=== PATIENT | male | born 1950 | race Hispanic/Latino ===

== ENCOUNTER 2017-03-24 17:59 | Emergency (ER) | payer BC, MEDICARE ==
[2017-03-24 18:00] VITALS: PULSE 88; BMI 37.2
[2017-03-24 18:36] VITALS: TEMP 98.2
--- NOTE | 2017-03-24 19:11 | ED PDOC ---
Arrival/HPI - General Historian: Patient, Spouse - History of Present Illness Time/Duration: 24 hours Symptom Onset: Gradual Symptom Course: Worsening - General Chief Complaint: Shortness Of Breath Time Seen by Provider: 03/24/17 18:33 - History of Present Illness Narrative History of Present Illness (Text): 66 M with a PMHx of atrial fibrillation (on coumadin) , COPD, abdominal abscess , HTN, blood clots, severe tracheobronchiomalacia, tinnitus, rheumatoid arthritis, peripheral neuropathy, osteoarthritis presents with shortness of breath. Pt states that his shortness of breath first started yesterday morning and it has since got progressively worse. He states that he tried taking his inhalers but it did not help, so due to his extensive medical history he decided to come to the emergency depart. Pt denies any headache, fevers, chills , coughing or chest pain, abd pain, n/v/d. PMD: Dr Deutsch ([facility]) Past Medical History - Provider Review Nursing Documentation Reviewed: Yes - Infectious Disease Hx of Infectious Diseases: None - Tetanus Immunization Tetanus Immunization: Unknown - Cardiac Hx Cardiac Disorders: Yes Hx Atrial Fibrillation: Yes Hx Hypotension: Yes - Pulmonary Hx Asthma: Yes Hx Chronic Obstructive Pulmonary Disease (COPD): Yes Hx Emphysema: Yes - Neurological Hx Neurological Disorder: Yes (neuropathy feet and hands) Hx Dizziness: Yes - HEENT Hx HEENT Disorder: No - Renal Hx Renal Failure: Yes (in past) - Hematological/Oncological Hx Anemia: Yes (blood transfusions) - Integumentary Hx Dermatological Disorder: Yes (skin CA top of head) - Musculoskeletal/Rheumatological Hx Arthritis: Yes - Gastrointestinal Hx Ileostomy: Yes (ileostomy reversal) Other/Comment: polyps, colon resection - Genitourinary/Gynecological Hx Genitourinary Disorders: No - Psychiatric Hx Psychophysiologic Disorder: No Hx Anxiety: Yes Hx Substance Use: No - Surgical History Other/Comment: colon resection 11/21 and 11/29 1999, colon resection june 02 2010, abcess in colon 09/10/2010 was emergency sx resulting in ileostomy, 3 bacterian infections and 104 fever, ileostomy reversal 04/05/2011 with complications of pneumonia, resp and kidney failure in icu, blas with cardioversion 06/04/14, marsha filter 05/2011,left hip replacement 06/04/2006 and 10/11/2006, hernia over ileostomy removed 01/31/2012, patient has IVC filter - Anesthesia Hx Anesthesia Reactions: No Hx Malignant Hyperthermia: No - Suicidal Assessment Feels Threatened In Home Enviroment: No Family/Social History - Physician Review Nursing Documentation Reviewed: Yes Family/Social History: No Known Family HX Smoking Status: Never Smoked Hx Alcohol Use: Yes (social) Hx Substance Use: No Hx Substance Use Treatment: No Allergies/Home Meds Allergies/Adverse Reactions: Allergies morphine Allergy (Verified 03/24/17 18:09) SHORTNESS OF BREATH HALLUCINATION CONTRAST Allergy (Uncoded 08/06/16 10:51) SHORTNESS OF BREATH Home Medications: Home Meds Medication Instructions Recorded Confirmed Cholestyramine [Cholestyramine 1 pkt PO DAILY 05/28/14 03/24/17 Resin] Esomeprazole Magnesium [Nexium] 40 mg PO DAILY 09/11/14 03/24/17 Cholecalciferol (Vitamin D3) 2,000 iu PO DAILY 11/06/14 03/24/17 [Vitamin D3] Albuterol Sulfate [Proair Hfa] 2 puff IH BID 12/27/14 03/24/17 Lamotrigine [Lamictal] 150 mg PO HS 12/27/14 03/24/17 Mecobal/Levomefolat Ca/B6 Phos 1 tab PO BID 12/27/14 03/24/17 [Foltanx Tablet] Acetaminophen/Oxycodone Hydr 1 tab PO TID 08/24/15 03/24/17 [Percocet 10/325 mg Tab] Zolpidem Tartrate [Ambien] 1 tab PO HS 08/06/16 03/24/17 Abatacept [Orencia] 125 mg INJ QWK 12/24/16 03/24/17 Allopurinol [Zyloprim] 1 tab PO BID 12/24/16 03/24/17 Arformoterol [Brovana] 1 vial IH BID 12/24/16 03/24/17 Budesonide [Pulmicort Respules] 1 vial IH BID 12/24/16 03/24/17 Cetirizine HCl [Zyrtec] 1 tab PO DAILY 12/24/16 03/24/17 Colchicine [Mitigare] 1 tab PO QOTHERDAY 12/24/16 03/24/17 Folic Acid 1 tab PO DAILY 12/24/16 03/24/17 Furosemide [Lasix] 1 tab PO BID 12/24/16 03/24/17 Magnesium Oxide [Mag-Ox] 2 tab PO BID 12/24/16 03/24/17 Meclizine [Meclizine*] 1 tab PO TID 12/24/16 03/24/17 Methotrexate 25 mg INJ QWK 12/24/16 03/24/17 Metoprolol Tartrate [Lopressor] 1 tab PO BID 12/24/16 03/24/17 Psyllium Husk/Calcium Carb 2 cap PO TID 12/24/16 03/24/17 [Metamucil Plus Calcium Capsule] Warfarin Sodium [Coumadin] 5 mg PO QD6 12/24/16 03/24/17 Warfarin [Coumadin] 1 tab PO SUN 12/24/16 03/24/17 Montelukast [Singulair] 10 mg PO HS 03/24/17 03/24/17 Review of Systems - Review of Systems Constitutional: absent: Weight Change, Fevers Eyes: absent: Vision Changes ENT: absent: Hearing Changes Respiratory: SOB. absent: Cough, Sputum, Wheezing Cardiovascular: absent: Chest Pain, Palpitations, Edema Gastrointestinal: absent: Abdominal Pain, Diarrhea, Nausea, Vomiting Genitourinary Male: absent: Dysuria, Frequency Musculoskeletal: Arthralgias (R shoulder ) Skin: absent: Rash Neurological: absent: Headache, Dizziness Endocrine: absent: Diaphoresis Psychiatric: absent: Anxiety, Depression Physical Exam Temperature: Afebrile Blood Pressure: Hypertensive Pulse: Regular Respiratory Rate: Normal Appearance: Positive for: Well-Appearing, Non-Toxic, Comfortable Pain Distress: None Mental Status: Positive for: Alert and Oriented X 3 - Systems Exam Head: Present: Atraumatic, Normocephalic Pupils: Present: PERRL Extroacular Muscles: Present: EOMI Conjunctiva: Present: Normal Mouth: Present: Moist Mucous Membranes Neck: Present: Normal Range of Motion Respiratory/Chest: Present: Clear to Auscultation, Good Air Exchange. No: Respiratory Distress, Accessory Muscle Use, Wheezes, Rales Cardiovascular: Present: Regular Rate and Rhythm, Normal S1, S2. No: Murmurs Abdomen: Present: Normal Bowel Sounds. No: Tenderness, Distention, Peritoneal Signs Upper Extremity: Present: Normal Inspection. No: Cyanosis, Edema Lower Extremity: Present: Normal Inspection. No: Edema, CALF TENDERNESS Neurological: Present: GCS=15, CN II-XII Intact, Speech Normal Skin: Present: Warm, Dry, Normal Color. No: Rashes Psychiatric: Present: Alert, Oriented x 3, Normal Insight, Normal Concentration Vital Signs Temp Pulse Resp BP Pulse Ox 03/24/17 19:05 16 97 03/24/17 18:28 98.2 F 70 12 145/94 H 97 03/24/17 18:04 98 F 72 18 141/93 H 95 Medical Decision Making ED Course and Treatment: Patient Seen With Resident: In agreement with resident note. Patient was seen and evaluated with resident, came up with plan and treatment together. (Omid Robledo DO) Impression: 66 M with a PMHx of atrial fibrillation (on coumadin) , COPD, abdominal abscess, HTN, blood clots, severe tracheobronchiomalacia, tinnitus, rheumatoid arthritis, peripheral neuropathy, osteoarthritis presents with shortness of breath. Differential Diagnosis included but are not limited to: COPD exac vs CHF Plan: - CBC, CMP, Cardiac Iso, BNP, INR PT/PTT - EKG - CXR - Duoneb stat - O2 NC as needed - Solumedrol 125mg stat - Reassess and disposition Prior Visits: Notes and results from previous visits were reviewed. On 12/24/16 patient came in complaining of abdominal pain and found to have SBO. EKG: Ordered, reviewed, and independently interpreted the EKG. Rate : 68 BPM Rhythm : afib Interpretation : No ST-segment elevations or depressions, no T-wave inversions, normal intervals. Comparison : 12/24/16 Progress Notes: 03/24/17 21:03 Pt hemodynamically stable. Saturating well. No complaints of shortness of breath or chest pain at this time. Pt instructed to follow up with his PMD and Quenching Machine Operator. (Nikita Mckoy) - Lab Interpretations Lab Results: 03/24/17 19:28 03/24/17 19:28 Lab Results 03/24/17 19:28: PT 15.0 H, INR 1.39 H, APTT 33.0 H 03/24/17 19:28: Sodium 136, Potassium 4.7, Chloride 98, Carbon Dioxide 32, Anion Gap 11, BUN 22 H, Creatinine 1.2, Est GFR ( Amer) > 60, Est GFR ( Non-Af Amer) > 60, Random Glucose 97, Calcium 9.2, Magnesium 2.1, Total Bilirubin 0.8, AST 42, ALT 25, Alkaline Phosphatase 102, Lactate Dehydrogenase 761 H, Total Creatine Kinase 125, Troponin I < 0.01, NT-Pro-B Natriuret Pep 2020 H, Total Protein 6.7, Albumin 3.9, Globulin 2.9, Albumin/Globulin Ratio 1.3 03/24/17 19:28: WBC 5.4 D, RBC 4.22, Hgb 12.7 L, Hct 38.1 L, MCV 90.3, MCH 30.1 , MCHC 33.3, RDW 16.5 H, Plt Count 174, MPV 11.2 H, Gran % 66.1, Lymph % (Auto) 22.7, [place] % (Auto) 8.1 H, Eos % (Auto) 2.2, Baso % (Auto) 0.9, Gran # 3.59, Lymph # 1.2, [place] # 0.4, Eos # 0.1, Baso # 0.05 - RAD Interpretation Radiology Orders: 03/24/17 18:34 CHEST PORTABLE [RAD] Stat - Medication Orders Current Medication Orders: Discontinued Medications Albuterol/Ipratropium (Duoneb 3 Mg/0.5 Mg (3 Ml) Ud) 3 ml IH Q15M ISAIAH Stop: 03/24/17 19:46 Last Admin: 03/24/17 19:42 Dose: 3 ml Methylprednisolone (Solu-Medrol) 125 mg IVP STAT STA Stop: 03/24/17 19:06 Last Admin: 03/24/17 19:29 Dose: 125 mg - PA / EMISSIONS TESTING AND REPAIR TECHNICIAN / Resident Statement / has reviewed & agrees with the documentation as recorded. / has examined the patient and agrees with the treatment plan. Disposition/Present on Arrival - Present on Arrival Any Indicators Present on Arrival: No History of DVT/PE: No History of Uncontrolled Diabetes: No Urinary Catheter: No History of Decub. Ulcer: No History Surgical Site Infection Following: Orthopedic Procedures - Disposition Have Diagnosis and Disposition been Completed?: Yes Disposition Time: 21:00 Patient Plan: Discharge - Disposition Diagnosis: COPD exacerbation Disposition: HOME/ ROUTINE Patient Problems: Current Active Problems Problem Status Onset COPD exacerbation Acute Condition: IMPROVED Additional Instructions: Al Interiano , thank you for letting us take care of you today. Your provider was Dr Robledo . You were treated for COPD exacerbation. The emergency medical care you received today was directed at your acute symptoms. If you were prescribed any medication, please fill it and take as directed. It may take several days for your symptoms to resolve. Return to the Emergency Department if your symptoms worsen, do not improve, or if you have any other problems. Please contact your doctor or call one of the physicians/clinics you have been referred to that are listed on the Patient Visit Information form that is included in your discharge packet. Bring any paperwork you were given at discharge with you along with any medications you are taking to your follow up visit. Our treatment cannot replace ongoing medical care by a primary care provider (PCP) outside of the emergency department. Thank you for allowing the [facility] team to be part of your care today. Follow up with your PMD with in 3 days. If your symptoms recur come back to the emergency department. Referrals: Livan Deutsch MD [Primary Care Provider] - Follow up with primary
[2017-03-24] MEDS: Albuterol-Ipratrop 3 mg / 0.5 (3 ml) UD IH SCH ×3 (19:30→21:02)
[2017-03-24 19:35] LABS: ADD MANUAL DIFF? NO
[2017-03-24 19:56] LABS: BASO # 0.05 K/mm3 (0.0-2.0); BASO % 0.9 % (0.0-3.0); EOS # 0.1 (0.0-0.7); EOS % 2.2 % (1.5-5.0); GRAN # 3.59 (1.4-6.5); GRAN % 66.1 % (50.0-68.0); HEMATOCRIT 38.1 % (42.0-52.0); LYMPH # 1.2 (1.2-3.4); LYMPH % 22.7 % (22.0-35.0); MEAN CELL VOLUME 90.3 fL (80.0-105.0); MEAN CORPUSCULAR HEMOGLOBIN 30.1 pg (25.0-35.0); MEAN CORPUSCULAR HGB CONC 33.3 g/dl (31.0-37.0); MEAN PLATELET VOLUME 11.2 fl (7.0-11.0); MONO # 0.4 (0.1-0.6); MONO % 8.1 % (1.0-6.0); PLATELET COUNT 174 10^3/uL (120.0-450.0); RED CELL DISTRIBUTION WIDTH 16.5 % (11.5-14.5); WHITE BLOOD COUNT 5.4 10^3/ul (4.5-11.0)
[2017-03-24 20:00] LABS: INR 1.39 (0.93-1.08)
[2017-03-24 20:08] LABS: ALB/GLOB RATIO 1.3 (1.1-1.8); ALKALINE PHOSPHATASE 102 U/L (38-133); ALT/SGPT 25 U/L (7-56); AST/SGOT 42 U/L (15-59); BILIRUBIN,TOTAL 0.8 mg/dL (0.2-1.3); BLOOD UREA NITROGEN 22 mg/dL (7-21); CALCIUM 9.2 mg/dL (8.4-10.5); CARBON DIOXIDE 32 mmol/L (21-33); CHLORIDE 98 mmol/L (98-107); GFR AFRICAN-AMERICAN > 60; GLUCOSE,RANDOM 97 mg/dL (70-110); MAGNESIUM 2.1 mg/dL (1.7-2.2); POTASSIUM 4.7 mmol/L (3.6-5.0); SODIUM 136 mmol/L (132-148); TOTAL PROTEIN 6.7 g/dL (5.8-8.3)
[2017-03-24 20:17] LABS: TROPONIN I < 0.01 ng/mL
[2017-03-24 21:14] VITALS: BP 130/84; PULSE 74; O2SAT 98
[2017-03-24 21:26] VITALS: RESP 16
--- NOTE | 2017-03-25 08:45 | RAD ---
HISTORY: SOB COMPARISON: 08/06/2016 FINDINGS: LUNGS: No active pulmonary disease. PLEURA: Nonspecific elevation of left hemidiaphragm. No pleural effusion or pneumothorax. CARDIOVASCULAR: Normal. OSSEOUS STRUCTURES: No significant abnormalities. VISUALIZED UPPER ABDOMEN: Normal. OTHER FINDINGS: None. IMPRESSION: No active disease.
--- NOTE | 2017-03-25 13:26 | CARD ---
APPROVED REPORT EKG Measurement Heart [id number] <Conclusion> Atrial fibrillation NSSTW changes
== END 2017-03-24 21:26 | disposition home or self-care (01) ==
LOC: ED 17:59
DX: J44.1 Chronic obstructive pulmonary disease with (acute) exacerbation (principal); I48.91 Unspecified atrial fibrillation; I10 Essential (primary) hypertension
CPT/HCPCS: 71010; 80053; 82550; 83615; 83735; 83880; 84484; 85025; 85610; 85730; 93005; 96374; 99284; J2930

== ENCOUNTER 2017-11-27 14:08 | Emergency (ER) | payer MEDICARE ==
[2017-11-27 14:09] VITALS: PULSE 88
[2017-11-27 14:46] VITALS: BMI 38.2
[2017-11-27] MEDS ORDERED: Albuterol-Ipratrop 3 mg / 0.5 (3 ml) UD IH STA (14:46)
--- NOTE | 2017-11-27 14:48 | ED PDOC ---
Arrival/HPI - General Chief Complaint: Abdominal Pain Time Seen by Provider: 11/27/17 14:32 Historian: Patient - History of Present Illness Narrative History of Present Illness (Text): 11/27/17 14:46 67 year old male, whose history includes COPD, chronic shortness of breath no worse than usual, and multiple previous abdominal surgeries, presents to the Emergency department complaining of abdominal bloating for 2 days. Patient also complains of nausea. Patient denies any fever, chills, vomiting, diarrhea, urinary symptoms, back pain, neck pain, headache, dizziness or any other complaints. Time/Duration: < week (2 days) Symptom Onset: Gradual Symptom Course: Unchanged Context: Home Past Medical History - Provider Review Nursing Documentation Reviewed: Yes - Infectious Disease Hx of Infectious Diseases: None - Tetanus Immunization Tetanus Immunization: Unknown - Cardiac Hx Cardiac Disorders: Yes - Pulmonary Hx Chronic Obstructive Pulmonary Disease (COPD): Yes - Neurological Hx Neurological Disorder: Yes (neuropathy feet and hands) Hx Dizziness: Yes - HEENT Hx HEENT Disorder: No - Renal Hx Renal Failure: Yes (in past) - Hematological/Oncological Hx Anemia: Yes (blood transfusions) - Integumentary Hx Dermatological Disorder: Yes (skin CA top of head) - Musculoskeletal/Rheumatological Hx Falls: No - Gastrointestinal Hx Ileostomy: Yes (ileostomy reversal) Other/Comment: polyps, colon resection - Genitourinary/Gynecological Hx Genitourinary Disorders: No - Psychiatric Hx Psychophysiologic Disorder: No Hx Anxiety: Yes Hx Substance Use: No - Surgical History Other/Comment: colon resection 11/21 and 11/29 1999, colon resection june 02 2010, abcess in colon 09/10/2010 was emergency sx resulting in ileostomy, 3 bacterian infections and 104 fever, ileostomy reversal 04/05/2011 with complications of pneumonia, resp and kidney failure in icu, blas with cardioversion 06/04/14, marsha filter 05/2011,left hip replacement 06/04/2006 and 10/11/2006, hernia over ileostomy removed 01/31/2012, patient has IVC filter - Anesthesia Hx Anesthesia Reactions: No Hx Malignant Hyperthermia: No - Suicidal Assessment Feels Threatened In Home Enviroment: No Family/Social History Family/Social History: Unknown Family HX Smoking Status: Former Smoker Hx Alcohol Use: No (social, former) Hx Substance Use: No Hx Substance Use Treatment: No Allergies/Home Meds Allergies/Adverse Reactions: Allergies morphine Allergy (Verified 11/27/17 15:02) SHORTNESS OF BREATH HALLUCINATION CONTRAST Allergy (Uncoded 11/27/17 15:02) SHORTNESS OF BREATH Home Medications: Home Meds Medication Instructions Recorded Confirmed Cholestyramine [Cholestyramine 1 pkt PO DAILY 05/28/14 11/27/17 Resin] Esomeprazole Magnesium [Nexium] 40 mg PO DAILY 09/11/14 11/27/17 Cholecalciferol (Vitamin D3) 2,000 iu PO DAILY 11/06/14 11/27/17 [Vitamin D3] Albuterol Sulfate [Proair Hfa] 2 puff IH BID 12/27/14 11/27/17 Lamotrigine [Lamictal] 150 mg PO HS 12/27/14 11/27/17 Mecobal/Levomefolat Ca/B6 Phos 1 tab PO BID 12/27/14 11/27/17 [Foltanx Tablet] Acetaminophen/Oxycodone Hydr 1 tab PO TID 08/24/15 11/27/17 [Percocet 10/325 mg Tab] Zolpidem Tartrate [Ambien] 1 tab PO HS 08/06/16 11/27/17 Abatacept [Orencia] 125 mg INJ QWK 12/24/16 11/27/17 Allopurinol [Zyloprim] 1 tab PO BID 12/24/16 11/27/17 Arformoterol [Brovana] 1 vial IH BID 12/24/16 11/27/17 Budesonide [Pulmicort Respules] 1 vial IH BID 12/24/16 11/27/17 Cetirizine HCl [Zyrtec] 1 tab PO DAILY 12/24/16 11/27/17 Colchicine [Mitigare] 1 tab PO QOTHERDAY 12/24/16 11/27/17 Folic Acid 1 tab PO DAILY 12/24/16 11/27/17 Furosemide [Lasix] 1 tab PO BID 12/24/16 11/27/17 Magnesium Oxide [Mag-Ox] 2 tab PO BID 12/24/16 11/27/17 Meclizine [Meclizine*] 1 tab PO TID 12/24/16 11/27/17 Methotrexate 25 mg INJ QWK 12/24/16 11/27/17 Metoprolol Tartrate [Lopressor] 1 tab PO BID 12/24/16 11/27/17 Psyllium Husk/Calcium Carb 2 cap PO TID 12/24/16 11/27/17 [Metamucil Plus Calcium Capsule] Warfarin Sodium [Coumadin] 5 mg PO QD6 12/24/16 11/27/17 Warfarin [Coumadin] 7.5 tab PO SUN 12/24/16 11/27/17 Montelukast [Singulair] 10 mg PO HS 03/24/17 11/27/17 Review of Systems - Physician Review All systems were reviewed & negative as marked: Yes - Review of Systems Constitutional: absent: Fevers, Night Sweats Respiratory: SOB Gastrointestinal: Nausea, Other (abdominal bloating). absent: Diarrhea, Vomiting Genitourinary Male: absent: Dysuria, Frequency, Hematuria Musculoskeletal: absent: Back Pain, Neck Pain Neurological: absent: Headache, Dizziness Physical Exam Vital Signs Temp Pulse Resp BP Pulse Ox 11/27/17 18:15 76 18 150/96 H 95 11/27/17 17:52 72 18 162/112 H 96 11/27/17 15:12 98.0 F 79 18 150/63 95 - Systems Exam Head: Present: Atraumatic, Normocephalic Pupils: Present: PERRL Extroacular Muscles: Present: EOMI Conjunctiva: Present: Normal Mouth: Present: Moist Mucous Membranes Neck: Present: Normal Range of Motion Respiratory/Chest: Present: Decreased Breath Sounds. No: Wheezes, Rales, Rhonchi Cardiovascular: Present: Regular Rate and Rhythm, Normal S1, S2. No: Murmurs Abdomen: No: Tenderness, Normal Bowel Sounds (increased bowel sounds), Rebound, Guarding Back: Present: Normal Inspection. No: CVA Tenderness Upper Extremity: Present: Normal Inspection. No: Cyanosis, Edema Lower Extremity: Present: Normal Inspection. No: Edema Neurological: Present: GCS=15, CN II-XII Intact, Speech Normal Skin: Present: Warm, Dry, Normal Color. No: Rashes Psychiatric: Present: Alert, Oriented x 3, Normal Insight, Normal Concentration Medical Decision Making ED Course and Treatment: 11/27/17 14:46 Impression: 67 year old male presents to the Emergency department complaining of abdominal bloating and nausea. Plan: -- CT scan of abdomen and pelvis -- Urinalysis -- Labs -- Albuterol, Zofran -- IV fluids -- Reassess and disposition Progress Notes: 11/27/17 18:33 Symptoms improved with Zofran - Lab Interpretations Lab Results: 11/27/17 15:15 11/27/17 15:15 Lab Results 11/27/17 15:15: Sodium 140, Potassium 4.9, Chloride 100, Carbon Dioxide 31, Anion Gap 13, BUN 26 H, Creatinine 1.4, Est GFR ( Amer) > 60, Est GFR ( Non-Af Amer) 50, Random Glucose 105, Calcium 9.5, Total Bilirubin 0.8, AST 50, ALT 25, Alkaline Phosphatase 107, Total Protein 7.1, Albumin 4.3, Globulin 2.8, Albumin/Globulin Ratio 1.5, Lipase 128 11/27/17 15:15: Urine Color Light yellow, Urine Appearance Clear, Urine pH 7.0, Ur Specific [place] 1.010, Urine Protein Negative, Urine Glucose (UA) Negative, Urine Ketones Negative, Urine Blood Negative, Urine Nitrate Negative, Urine Bilirubin Negative, Urine Urobilinogen 0.2, Ur Leukocyte Esterase Negative 11/27/17 15:15: PT 32.5 H, INR 2.79 H, APTT 43.7 H 11/27/17 15:15: WBC 8.4 D, RBC 4.35, Hgb 13.6 L, Hct 41.8 L, MCV 96.1, MCH 31.3 , MCHC 32.5, RDW 15.7 H, Plt Count 173, MPV 11.3 H, Gran % 82.0 H, Lymph % (Auto ) 11.4 L, [place] % (Auto) 4.8, Eos % (Auto) 1.4 L, Baso % (Auto) 0.4, Gran # 6.88 H, Lymph # 1.0 L, [place] # 0.4, Eos # 0.1, Baso # 0.03 - RAD Interpretation Radiology Orders: 11/27/17 14:45 ABD & PELVIS PO CONTRAST ONLY [CT] Stat CT scan is read by the radiologist shows no acute findings Black Top Spreader Machine Operator: Radiologist - Medication Orders Current Medication Orders: Discontinued Medications Albuterol/Ipratropium (Duoneb 3 Mg/0.5 Mg (3 Ml) Ud) 3 ml IH ONCE STA Stop: 11/27/17 14:47 Last Admin: 11/27/17 15:34 Dose: 3 ml Ondansetron HCl (Zofran Inj) 4 mg IVP STAT STA Stop: 11/27/17 14:46 Last Admin: 11/27/17 15:34 Dose: 4 mg IVP Administration Document 11/27/17 15:34 [facility] (Rec: 11/27/17 15:34 [facility] [id number]) Charges for Administration # of IVP Administrations 1 - Scribe Statement The provider has reviewed the documentation as recorded by the Scribe Rob Ambrocio All medical record entries made by the Scribe were at my direction and personally dictated by me. I have reviewed the chart and agree that the record accurately reflects my personal performance of the history, physical exam, medical decision making, and the department course for this patient. I have also personally directed, reviewed, and agree with the discharge instructions and disposition. Disposition/Present on Arrival - Present on Arrival Any Indicators Present on Arrival: No History of DVT/PE: No History of Uncontrolled Diabetes: No Urinary Catheter: No History of Decub. Ulcer: No History Surgical Site Infection Following: Orthopedic Procedures - Disposition Have Diagnosis and Disposition been Completed?: Yes Diagnosis: Abdominal bloating Disposition: HOME/ ROUTINE Disposition Time: 18:34 Patient Plan: Discharge Condition: GOOD Discharge Instructions (ExitCare): Gas and Bloating (ED), Abdominal Pain (ED) Prescriptions: Ondansetron [Zofran Odt] 4 mg SL Q6 #20 odt Forms: [employer] ([place]an)
[2017-11-27] MEDS ORDERED: Iohexol 240 (50 ml) ONE (15:09)
[2017-11-27 15:12] VITALS: RESP 18; TEMP 98
[2017-11-27 15:52] LABS: HEMOGLOBIN 13.6 g/dL (14.0-18.0); MEAN CELL VOLUME 96.1 fl (80.0-105.0); MEAN CORPUSCULAR HEMOGLOBIN 31.3 pg (25.0-35.0); RBC 4.35 10^6/uL (3.5-6.1); WHITE BLOOD COUNT 8.4 10^3/ul (4.5-11.0)
[2017-11-27 15:53] LABS: ALB/GLOB RATIO 1.5 (1.1-1.8); ALBUMIN 4.3 g/dL (3.0-4.8); BASO # 0.03 K/mm3 (0.0-2.0); BASO % 0.4 % (0.0-3.0); CALCIUM 9.5 mg/dL (8.4-10.5); EOS # 0.1 (0.0-0.7); EOS % 1.4 % (1.5-5.0); GFR AFRICAN-AMERICAN > 60; GFR NON-AFRICAN AMERICAN 50; GRAN # 6.88 (1.4-6.5); LIPASE 128 U/L (23-300); LYMPH % 11.4 % (22.0-35.0); MEAN CORPUSCULAR HGB CONC 32.5 g/dl (31.0-37.0); MEAN PLATELET VOLUME 11.3 fl (7.0-11.0); MONO # 0.4 (0.1-0.6); MONO % 4.8 % (1.0-6.0); RED CELL DISTRIBUTION WIDTH 15.7 % (11.5-14.5)
[2017-11-27 15:54] LABS: ALT/SGPT 25 U/L (7-56); AST/SGOT 50 U/L (17-59); BLOOD UREA NITROGEN 26 mg/dL (7-21)
[2017-11-27 16:02] LABS: INR 2.79 (0.93-1.08); PARTIAL THROMBOPLASTIN TIME 43.7 Seconds (25.1-36.5); PROTHROMBIN TIME 32.5 SECONDS (9.4-12.5)
[2017-11-27 16:26] LABS: URINE BILIRUBIN NEGATIVE (NEGATIVE); URINE BLOOD NEGATIVE (NEGATIVE); URINE GLUCOSE (UA) NEGATIVE (NEGATIVE); URINE LEUKOCYTE ESTERASE NEGATIVE Leu/uL (NEGATIVE); URINE NITRATE NEGATIVE (NEGATIVE); URINE PROTEIN NEGATIVE mg/dL (<30 mg/dL); URINE UROBILINOGEN 0.2 E.U./dL (<1 E.U./dL)
[2017-11-27 16:36] LABS: URINE APPEARANCE CLEAR (CLEAR); URINE COLOR LIGHT YELLOW (YELLOW)
[2017-11-27] MEDS ORDERED: Iohexol 350 MG/100 ML VIAL ONE (17:31)
[2017-11-27 18:15] VITALS: BP 150/96; PULSE 76; O2SAT 95
--- NOTE | 2017-11-27 18:20 | CT ---
EXAM: CT Abdomen Without Intravenous Contrast CLINICAL HISTORY: 67 years old, male; Pain; Abdominal pain; Acute TECHNIQUE: Axial computed tomography images of the abdomen without intravenous contrast. All CT scans at this facility use one or more dose reduction techniques, viz.: automated exposure control; ma/kV adjustment per patient size (including targeted exams where dose is matched to indication; i.e. head); or iterative reconstruction technique. Coronal and sagittal reformatted images were created and reviewed. COMPARISON: CT - ABD PELVIS W/O PO OR IV CONT 2016-12-24 20:07 FINDINGS: Lower thorax: Mild cardiomegaly. Chronic elevation of the left hemidiaphragm. Atelectasis left lung base. Liver: Unremarkable. Gallbladder and bile ducts: Unremarkable. No calcified stones. No ductal dilation. Pancreas: Unremarkable. No ductal dilation. Spleen: Unremarkable. No splenomegaly. Adrenals: 4 CM left adrenal lesion, stable. Kidneys and ureters: Bilateral renal cortical thinning and lobulation. No obstructing stones. No hydronephrosis. Stomach and bowel: Partial colectomy. Anastomotic suture lines right lower quadrant. Diverticulosis. Appendix: Surgically absent. Intraperitoneal space: Unremarkable. No free air. No significant fluid collection. Bones/joints: Left hip prosthesis causes significant streak artifact across the abdomen. Diffuse spinal degenerative changes. No acute fracture. No dislocation. Soft tissues: Unremarkable. Vasculature: IVC filter. Atherosclerotic vascular disease. No abdominal aortic aneurysm. Lymph nodes: Unremarkable. No enlarged lymph nodes. IMPRESSION: 1. No evidence of bowel obstruction. 2. Remainder of findings as above.
== END 2017-11-27 18:45 | disposition home or self-care (01) ==
LOC: ED 14:08
DX: R14.0 Abdominal distension (gaseous) (principal); D64.9 Anemia, unspecified; Z93.2 Ileostomy status
CPT/HCPCS: 74176; 80053; 81003; 83690; 85025; 85610; 85730; 96374; 99283; J2405; Q9966

== ENCOUNTER 2017-11-30 16:17 | Emergency (ER) | payer MEDICARE ==
[2017-11-30 16:17] VITALS: PULSE 88
--- NOTE | 2017-11-30 16:34 | ED PDOC ---
Arrival/HPI - General Time Seen by Provider: 11/30/17 16:25 - Critical Care Critical Care Minutes: 90 minutes Narrative Critical Care (Text): Patient required my immediate and constant attention, complex decision making. - History of Present Illness Narrative History of Present Illness (Text): 11/30/17 16:33 A 67 year old male, whose past medical history includes hypertension, atrial fibrillation on Coumadin, COPD, DVT, abdominal abscess, multiple abdominal surgeries, severe tracheobronchiomalacia, tinnitus, rheumatoid arthritis, peripheral neuropathy and osteoarthritis, brought into the emergency department by EMS in cardiac arrest. Patient was witnessed by family to have shortness of breath and lose consciousness and collapse at home. EMS was called and initiated CPR after approximately 10 minutes of down time. The patient was given multiple doses of epi, 1 calcium and 1 bicarb en route. Patient was initially in asystole and was in PEA at every pulse check thereafter. in ED states patient never with CAD, stent, or CABG. PMD: Dr. Deutsch Past Medical History - Infectious Disease Hx of Infectious Diseases: None - Tetanus Immunization Tetanus Immunization: Unknown - Cardiac Hx Cardiac Disorders: Yes - Pulmonary Hx Chronic Obstructive Pulmonary Disease (COPD): Yes - Neurological Hx Neurological Disorder: Yes (neuropathy feet and hands) Hx Dizziness: Yes - HEENT Hx HEENT Disorder: No - Renal Hx Renal Failure: Yes (in past) - Hematological/Oncological Hx Anemia: Yes (blood transfusions) - Integumentary Hx Dermatological Disorder: Yes (skin CA top of head) - Musculoskeletal/Rheumatological Hx Falls: No - Gastrointestinal Hx Ileostomy: Yes (ileostomy reversal) Other/Comment: polyps, colon resection - Genitourinary/Gynecological Hx Genitourinary Disorders: No - Psychiatric Hx Psychophysiologic Disorder: No Hx Anxiety: Yes Hx Substance Use: No - Surgical History Other/Comment: colon resection 11/21 and 11/29 1999, colon resection june 02 2010, abcess in colon 09/10/2010 was emergency sx resulting in ileostomy, 3 bacterian infections and 104 fever, ileostomy reversal 04/05/2011 with complications of pneumonia, resp and kidney failure in icu, blas with cardioversion 06/04/14, marsha filter 05/2011,left hip replacement 06/04/2006 and 10/11/2006, hernia over ileostomy removed 01/31/2012, patient has IVC filter - Anesthesia Hx Anesthesia Reactions: No Hx Malignant Hyperthermia: No - Suicidal Assessment Feels Threatened In Home Enviroment: No Family/Social History Family/Social History: Unknown Family HX Smoking Status: Former Smoker Hx Alcohol Use: No (social, former) Hx Substance Use: No Hx Substance Use Treatment: No Allergies/Home Meds Allergies/Adverse Reactions: Allergies morphine Allergy (Verified 11/27/17 15:02) SHORTNESS OF BREATH HALLUCINATION CONTRAST Allergy (Uncoded 11/27/17 15:02) SHORTNESS OF BREATH Home Medications: Home Meds Medication Instructions Recorded Confirmed Cholestyramine [Cholestyramine 1 pkt PO DAILY 05/28/14 11/27/17 Resin] Esomeprazole Magnesium [Nexium] 40 mg PO DAILY 09/11/14 11/27/17 Cholecalciferol (Vitamin D3) 2,000 iu PO DAILY 11/06/14 11/27/17 [Vitamin D3] Albuterol Sulfate [Proair Hfa] 2 puff IH BID 12/27/14 11/27/17 Lamotrigine [Lamictal] 150 mg PO HS 12/27/14 11/27/17 Mecobal/Levomefolat Ca/B6 Phos 1 tab PO BID 12/27/14 11/27/17 [Foltanx Tablet] Acetaminophen/Oxycodone Hydr 1 tab PO TID 08/24/15 11/27/17 [Percocet 10/325 mg Tab] Zolpidem Tartrate [Ambien] 1 tab PO HS 08/06/16 11/27/17 Abatacept [Orencia] 125 mg INJ QWK 12/24/16 11/27/17 Allopurinol [Zyloprim] 1 tab PO BID 12/24/16 11/27/17 Arformoterol [Brovana] 1 vial IH BID 12/24/16 11/27/17 Budesonide [Pulmicort Respules] 1 vial IH BID 12/24/16 11/27/17 Cetirizine HCl [Zyrtec] 1 tab PO DAILY 12/24/16 11/27/17 Colchicine [Mitigare] 1 tab PO QOTHERDAY 12/24/16 11/27/17 Folic Acid 1 tab PO DAILY 12/24/16 11/27/17 Furosemide [Lasix] 1 tab PO BID 12/24/16 11/27/17 Magnesium Oxide [Mag-Ox] 2 tab PO BID 12/24/16 11/27/17 Meclizine [Meclizine*] 1 tab PO TID 12/24/16 11/27/17 Methotrexate 25 mg INJ QWK 12/24/16 11/27/17 Metoprolol Tartrate [Lopressor] 1 tab PO BID 12/24/16 11/27/17 Psyllium Husk/Calcium Carb 2 cap PO TID 12/24/16 11/27/17 [Metamucil Plus Calcium Capsule] Warfarin Sodium [Coumadin] 5 mg PO QD6 12/24/16 11/27/17 Warfarin [Coumadin] 7.5 tab PO SUN 12/24/16 11/27/17 Montelukast [Singulair] 10 mg PO HS 03/24/17 11/27/17 Review of Systems - Review of Systems Systems not reviewed;Unavailable: Intubated Physical Exam - Physical Exam Narrative Physical Exam (Text): Gen: Intubated Head: NC/AT, bandage over scalp from recent excision Eyes: Nonreactive ENT: Intubated Neck: Supple Chest: No pacemaker CV: Palpable carotid/femoral pulses Abd: Distended Skin: Warm Neuro: Unresponsive. Vital Signs Temp Pulse Pulse Resp BP Pulse Ox 11/30/17 18:00 0 L 11/30/17 17:56 88 17 160/111 H 94 L 11/30/17 17:51 0 L 11/30/17 17:40 97.9 F 78 37 H 107/51 L 92 L 11/30/17 16:39 90 34 H 109/66 94 L 11/30/17 16:37 0 L 11/30/17 16:34 95.9 F L 85 34 H 96/70 L 93 L 11/30/17 16:27 0 L Medical Decision Making ED Course and Treatment: Patient was in PEA multiple times, requiring multiple doses of epi and compressions. Intubated prior to arrival in good position with capnography of 35. EKG shows no significant ST elevations, was normal rate, and new RBBB compared to previous. Considering patient's history of DVT and new RBBB with sudden cardiac arrest with shortness of breath, considered PE and thrombolysis. Discussed with family at length risks of doing so. However, patient had pulse of extended period of time so accompanied patient personally to CT for CTA. Report Date : 11/30/2017 18:03:03 PROCEDURE: CT Chest with contrast (Pulmonary Angiogram) Dictator : Leon Arellano MD IMPRESSION: No evidence of pulmonary embolism. Right lower lobe pulmonary infiltrate. Multifocal subsegmental atelectasis. Hazy increased attenuation in the anayeli hepatis region, possibly suggesting an inflammatory process. Nonspecific finding. This may be due to cholecystitis, hepatitis, pancreatitis , etc. Patient became pulseless again after returning from CT. CPR was performed for 30 minutes with no pulse at any pulse check. Patient began making spastic movements consistent with anoxic brain injury. Patient pronounced at 1816. Dr. Deutsch PMD notified. - Lab Interpretations Lab Results: 11/30/17 16:50 11/30/17 16:50 Lab Results 11/30/17 17:00: pO2 48, VBG pH 7.08 L*, VBG pCO2 78.0 H*, VBG HCO3 23.1, VBG Total CO2 25.5, VBG O2 Sat (Calc) 73.3 H, VBG Base Excess -8.4 L, VBG Potassium 4.9, Glucose 195 H, Lactate 7.7 H*, FiO2 21.0, Sodium 138.0, Chloride 102.0, Venous Blood Potassium 4.9 11/30/17 16:50: Sodium 137, Potassium 4.2, Chloride 101, Carbon Dioxide 21, Anion Gap 20, BUN 40 H, Creatinine 2.4 H, Est GFR ( Amer) 33, Est GFR ( Non-Af Amer) 27, Random Glucose 171 H, Calcium 8.8, Total Bilirubin 0.7, AST 84 H D, ALT 34, Alkaline Phosphatase 111, Lactate Dehydrogenase 1143 H, Total Creatine Kinase 283 H, CK-MB (CK-2) 3.5, CK-MB (CK-2) % Cancelled, Troponin I 0.16 H* D, Total Protein 6.7, Albumin 4.2, Globulin 2.5, Albumin/Globulin Ratio 1.7 11/30/17 16:50: PT 28.6 H, INR 2.46 H, APTT 39.7 H 11/30/17 16:50: WBC 10.5 D, RBC 4.37, Hgb 13.7 L, Hct 43.8, MCV 100.2 D, MCH 31.4, MCHC 31.3, RDW 16.2 H, Plt Count 164, MPV 11.4 H, Gran % 61.5, Lymph % ( Auto) 31.4, Wright % (Auto) 5.4, Eos % (Auto) 1.3 L, Baso % (Auto) 0.4, Gran # 6.45, Lymph # 3.3, Wright # 0.6, Eos # 0.1, Baso # 0.04 - RAD Interpretation Radiology Orders: 11/30/17 17:01 ANGIO CHEST PE PROTOCOL [CT] Stat Disposition/Present on Arrival - Present on Arrival Any Indicators Present on Arrival: Yes History of DVT/PE: Yes History of Uncontrolled Diabetes: No Urinary Catheter: No History Surgical Site Infection Following: Orthopedic Procedures - Disposition Have Diagnosis and Disposition been Completed?: Yes Diagnosis: Cardiac arrest Disposition: WITH WITHOUT AUTOPSY Disposition Time: 18:16 Condition: Referrals: Livan Deutsch MD [Primary Care Provider] - Follow up with primary
[2017-11-30 16:40] VITALS: BMI 36.1
[2017-11-30] MEDS ORDERED: Iodixanol 320 MG/ML 100 ML BOTTLE IV ONE (17:05)
[2017-11-30 17:10] LABS: BASO # 0.04 K/mm3 (0.0-2.0); BASO % 0.4 % (0.0-3.0); EOS # 0.1 (0.0-0.7); EOS % 1.3 % (1.5-5.0); GRAN # 6.45 (1.4-6.5); GRAN % 61.5 % (50.0-68.0); HEMOGLOBIN 13.7 g/dL (14.0-18.0); LYMPH # 3.3 (1.2-3.4); LYMPH % 31.4 % (22.0-35.0); MEAN CELL VOLUME 100.2 fl (80.0-105.0); MEAN CORPUSCULAR HEMOGLOBIN 31.4 pg (25.0-35.0); MEAN CORPUSCULAR HGB CONC 31.3 g/dl (31.0-37.0); MEAN PLATELET VOLUME 11.4 fl (7.0-11.0); MONO # 0.6 (0.1-0.6); MONO % 5.4 % (1.0-6.0); RBC 4.37 10^6/uL (3.5-6.1); RED CELL DISTRIBUTION WIDTH 16.2 % (11.5-14.5); WHITE BLOOD COUNT 10.5 10^3/ul (4.5-11.0)
[2017-11-30 17:19] LABS: VENOUS BLOOD GAS BASE EXCESS -8.4 mmol/L (0.0-2.0); VENOUS BLOOD GAS PO2 48 mm/Hg (30-55); VENOUS BLOOD PH 7.08 (7.32-7.43)
[2017-11-30 17:21] LABS: INR 2.46 (0.93-1.08); PARTIAL THROMBOPLASTIN TIME 39.7 Seconds (25.1-36.5); PROTHROMBIN TIME 28.6 SECONDS (9.4-12.5)
[2017-11-30 17:24] LABS: ALB/GLOB RATIO 1.7 (1.1-1.8); ALBUMIN 4.2 g/dL (3.0-4.8); CALCIUM 8.8 mg/dL (8.4-10.5)
[2017-11-30] MEDS ORDERED: DiphenhydrAMINE 50 mg/ml Inj ONE (17:54)
--- NOTE | 2017-11-30 18:04 | CT ---
PROCEDURE: CT Chest with contrast (Pulmonary Angiogram) HISTORY: rbbb, arrest COMPARISON: CT chest, abdomen and pelvis 09/04/2014 TECHNIQUE: Axial computed tomography images were obtained of the chest in the pulmonary arterial phase of enhancement. Coronal and sagittal reformatted images were created and reviewed. Intravenous contrast dose: 100 mL Visipaque 320 Radiation dose: Total exam DLP = 587.53 mGy-cm. This CT exam was performed using one or more of the following dose reduction techniques: Automated exposure control, adjustment of the mA and/or kV according to patient size, and/or use of iterative reconstruction technique. FINDINGS: PULMONARY ARTERIES: Unremarkable. No pulmonary embolism. AORTA: No acute findings. No thoracic aortic aneurysm. LUNGS: Right lower lobe pulmonary infiltrate. Subsegmental atelectasis in left lower lobe. Band -like opacities in left upper lobe, atelectasis versus scar. PLEURAL SPACES: Unremarkable. No effusion or pneuomothorax. HEART: Unremarkable. No cardiomegaly. No significant pericardial effusion. Endotracheal tube noted. LYMPH NODES: No lymphadenopathy. BONES, CHEST WALL: Unremarkable. No fracture or destructive lesion OTHER FINDINGS: There is hazy increased attenuation of the fat just inferior to the anayeli hepatis common nonspecific. The gallbladder is not included in this examination. . This is a nonspecific finding. IMPRESSION: No evidence of pulmonary embolism. Right lower lobe pulmonary infiltrate. Multifocal subsegmental atelectasis. Hazy increased attenuation in the anayeli hepatis region, possibly suggesting an inflammatory process. Nonspecific finding. This may be due to cholecystitis, hepatitis, pancreatitis, etc.
[2017-11-30 18:08] LABS: CK-MB 3.5 ng/mL (0.0-3.6); TROPONIN I 0.16 ng/mL
[2017-11-30 21:17] VITALS: BP 160/111; PULSE 88; RESP 17; TEMP 97.9; O2SAT 94
[2017-11-30] MEDS ORDERED: DiphenhydrAMINE 50 mg/ml Inj IVP STA (22:54)
== END 2017-11-30 21:50 ==
LOC: ED 16:17
DX: I46.9 Cardiac arrest, cause unspecified (principal); I10 Essential (primary) hypertension; I48.91 Unspecified atrial fibrillation; Z79.01 Long term (current) use of anticoagulants; J44.9 Chronic obstructive pulmonary disease, unspecified; Z86.718 Personal history of other venous thrombosis and embolism; Z87.891 Personal history of nicotine dependence
CPT/HCPCS: 71275; 80053; 82550; 82553; 82803; 83615; 84484; 85025; 85610; 85730; 96374; 96375; 99285; J1200; J2930; Q9967